=== PATIENT | female | born 1960 | race Caucasian/White ===

== ENCOUNTER 2019-03-06 17:10 | Emergency (ER) | payer OTHER ==
--- NOTE | 2019-03-06 17:52 | RAD REPORT ---
EXAM DESCRIPTION: RAD -Hand Left 3 View - 03/06/2019 5:37 pm CLINICAL HISTORY: Left hand pain status post injury FINDINGS: No fracture or dislocation is seen. Mild soft tissue amputation involves the distal second digit
[2019-03-06] MEDS ORDERED: IBUPROFEN 400 MG TAB ONE (17:55)
[2019-03-06] MEDS ORDERED: HYDROCODONE/APAP 5/325 MG TAB ONE (17:55)
--- NOTE | 2019-03-06 18:01 | ER ---
Nurse's Notes [facility] Name: Swetha Elizabeth Age: 58 yrs Sex: Female : 1960 Arrival Date: 03/06/2019 Time: 17:12 Bed 30 Private MD: Diagnosis: Laceration without foreign body of left index finger with damage to nail-Avulsion of distal fingertip Presentation: 03/06 17:12 Presenting complaint: Patient states: "I cut my left index finger with a rotary aa5 cutter". Pressure being applied to site by pt. 17:12 Transition of care: patient was not received from another setting of care. Complicating aa5 Factors: There are no complicating factors for this patient. Onset of symptoms was February 2019. Risk Assessment: Do you want to hurt yourself or someone else? Patient reports no desire to harm self or others. Care prior to arrival: None. 17:12 Method Of Arrival: Ambulatory aa5 17:12 Acuity: LEVY 3 aa5 17:20 Initial Sepsis Screen: Does the patient meet any 2 criteria? No. Patient's initial ca1 sepsis screen is negative. Does the patient have a suspected source of infection? No. Patient's initial sepsis screen is negative. 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 - Social history:: Smoking status: Patient/guardian denies using tobacco. - Ebola Screening: : No symptoms or risks identified at this time. Screenin:15 Abuse screen: Denies threats or abuse. Denies injuries from another. Nutritional ca1 screening: No deficits noted. Tuberculosis screening: No symptoms or risk factors identified. Fall Risk None identified. Assessment: 17:15 General: Appears in no apparent distress. uncomfortable, Behavior is calm, cooperative, ca1 appropriate for age. Pain: Complains of pain in dorsal aspect of distal phalanx of left index finger, palmar aspect of distal phalanx of left index finger and left index fingernail Pain currently is 10 out of 10 on a pain scale. Pain began 30 min ago. Neuro: Level of Consciousness is awake, alert, obeys commands, Oriented to person, place, time, situation. Cardiovascular: Heart tones S1 S2 present Capillary refill < 3 seconds Patient's skin is warm and dry. Respiratory: Airway is patent Respiratory effort is even, unlabored, Respiratory pattern is regular, symmetrical, Breath sounds are clear bilaterally. GI: No deficits noted. No signs and/or symptoms were reported involving the gastrointestinal system. : No deficits noted. No signs and/or symptoms were reported regarding the genitourinary system. EENT: No deficits noted. No signs and/or symptoms were reported regarding the EENT system. Derm: Skin is healthy with good turgor, Skin is pink, warm \\T\\ dry. Wound noted Left index finger Wound is avulsed wound. Musculoskeletal: Circulation, motion, and sensation intact. Capillary refill < 3 seconds, Range of motion: intact in all extremities. Injury Description: Laceration is clean, 2.6 to 7.5 cm long, bleeding moderately. 17:37 Reassessment: Cleaned wound. soaked on saline. Applied pressure dressing. Pt tolerated ca1 procedure well. 18:00 Reassessment: Assisted Aristeo Wilkins with surgiseal application on would, Kerlix and ca1 Coban. Pt tolerated well. 18:30 Reassessment: Patient appears in no apparent distress at this time. Patient is alert, ca1 oriented x 3, equal unlabored respirations, skin warm/dry/pink. Checked wound for bleeding. None noted at this time. Pt verbalized understanding of wound dressing and care for wound. Vital Signs: 17:15 BP 121 / 82; Pulse 89; Resp 17 S; Temp 98.1(O); Pulse Ox 99% on R/A; Weight 64.41 kg; ca1 Height 5 ft. 2 in. (157.48 cm); Pain 10/10; 18:35 BP 119 / 78; Pulse 86; Resp 18 S; Pulse Ox 100% on R/A; ca1 17:15 Body Mass Index 25.97 (64.41 kg, 157.48 cm) ca1 ED Course: 17:12 Patient arrived in ED. as 17:12 Arm band placed on. aa5 17:13 Aristeo Wilkins PA is PHCP. cp 17:13 Piero Bolden MD is Attending Physician. cp 17:15 Patient has correct armband on for positive identification. Bed in low position. Side ca1 rails up X 1. Pulse ox on. NIBP on. elevated left hand and applied pressure dressing on bleeding wound. 17:17 Triage completed. aa5 17:30 Ruma Padilla, RN is Primary Nurse. ca1 17:35 XRAY Hand LEFT 3 View In Process Unspecified. EDMS 17:45 No provider procedures requiring assistance completed. ca1 17:45 Patient did not have IV access during this emergency room visit. ca1 18:00 Dressings: Surgicel, Kerlix and Coban on avulsed wound at pointing finger on Left hand. ca1 Pt tolerated well. Administered Medications: 17:45 Drug: Golden 5 mg-325 mg 1 tabs Route: PO; ca1 18:45 Follow up: Response: No adverse reaction; Pain is decreased ca1 17:45 Drug: Ibuprofen 800 mg Route: PO; ca1 18:45 Follow up: Response: No adverse reaction; Pain is decreased ca1 Outcome: 18:01 Discharge ordered by MD. cp 18:30 Discharged to home ambulatory. ca1 18:30 Condition: stable 18:30 Discharge instructions given to patient, Instructed on discharge instructions, follow up and referral plans. medication usage, wound care, Demonstrated understanding of instructions, follow-up care, medications, Prescriptions given X 2. 18:56 Patient left the ED. ca1 Signatures: Dispatcher [employer] EDMS Yuridia Chua Audri, RN RN aa5 Aristeo Wilkins PA PA cp Ruma Padilla, RN RN ca1 Corrections: (The following items were deleted from the chart) 18:40 17:45 Dressings: Surgicel, Kerlix and Coban ca1 ca1 18:52 17:45 Dressings: Surgicel, Kerlix and Coban on avulsed wound at pointing finger on Left ca1 hand. Pt tolerated well. ca1 18:56 18:55 Discharged to home ambulatory, ca1 ca1 18:56 18:55 Condition: stable ca1 ca1 18:56 18:55 Discharge instructions given to patient, Instructed on discharge instructions, ca1 follow up and referral plans. medication usage, wound care, Demonstrated understanding of instructions, follow-up care, medications, Prescriptions given X 2, ca1 18:56 18:45 Reassessment: Patient appears in no apparent distress at this time. Patient is ca1 alert, oriented x 3, equal unlabored respirations, skin warm/dry/pink. Checked wound for bleeding. None noted at this time. Pt verbalized understanding of wound dressing and care for wound ca1
--- NOTE | 2019-03-06 18:01 | EDPHYS ---
Physician Documentation [facility] Name: Swetha Elizabeth Age: 58 yrs Sex: Female : 1960 Arrival Date: 03/06/2019 Time: 17:12 Bed 30 Private MD: ED Physician Piero Bolden HPI: 03/06 17:24 This 58 yrs old Female presents to ER via Ambulatory with complaints of cp Laceration To Hand. 17:24 The patient has a laceration related to: working, asparagus cutter, occurred at home, The cp injury was accidental. The laceration(s) is(are) located on the left index finger. Onset: The symptoms/episode began/occurred just prior to arrival. Associated signs and symptoms: Pertinent negatives: heavy bleeding. 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 - Social history:: Smoking status: Patient/guardian denies using tobacco. - Ebola Screening: : No symptoms or risks identified at this time. ROS: 17:25 Eyes: Negative for injury, pain, redness, and discharge. cp 17:25 Constitutional: Negative for body aches, chills, fever, poor PO intake. 17:25 Cardiovascular: Negative for chest pain. 17:25 Respiratory: Negative for cough, shortness of breath, wheezing. 17:25 Abdomen/GI: Negative for abdominal pain, vomiting, diarrhea, constipation. 17:25 MS/extremity: Positive for injury or acute deformity, laceration, of the left index finger. 17:25 Skin: Negative for rash. 17:25 All other systems are negative. Exam: 17:35 Constitutional: The patient appears in no acute distress, alert, awake, non-toxic, well cp developed, well nourished. 17:35 Head/Face: Normocephalic, atraumatic. cp 17:35 Eyes: Periorbital structures: appear normal, Conjunctiva: normal, Lids and lashes: appear normal, bilaterally. 17:35 ENT: External ear(s): are unremarkable, Nose: is normal, Mouth: is normal. 17:35 Chest/axilla: Inspection: normal. 17:35 Respiratory: the patient does not display signs of respiratory distress, Respirations: normal, no use of accessory muscles, no retractions. 17:35 Abdomen/GI: Exam negative for discomfort, distension, guarding, Inspection: abdomen appears normal. 17:35 Musculoskeletal/extremity: ROM: full active range of motion, in the left index finger, Perfusion: the extremity is normally perfused throughout, Sensation intact. Tendon exam: specific tendon testing normal through active and passive range of motion 17:35 Skin: injury, avulsion(s), a small of the distal phalanx lateral side left index finger, that can be described as through and through, with mild bleeding. Vital Signs: 17:15 BP 121 / 82; Pulse 89; Resp 17 S; Temp 98.1(O); Pulse Ox 99% on R/A; Weight 64.41 kg; ca1 Height 5 ft. 2 in. (157.48 cm); Pain 10/10; 18:35 BP 119 / 78; Pulse 86; Resp 18 S; Pulse Ox 100% on R/A; ca1 17:15 Body Mass Index 25.97 (64.41 kg, 157.48 cm) ca1 MDM: 17:13 Patient medically screened. cp 17:25 Differential diagnosis: superficial laceration, open fracture, skin avulsion. cp 18:00 Data reviewed: vital signs, nurses notes, radiologic studies, plain films. cp 18:00 Test interpretation: by ED physician or midlevel provider: xrays of left hand negative cp for fracture. Counseling: I had a detailed discussion with the patient and/or guardian regarding: the historical points, exam findings, and any diagnostic results supporting the discharge/admit diagnosis, radiology results, the need for outpatient follow up, a family practitioner, to return to the emergency department if symptoms worsen or persist or if there are any questions or concerns that arise at home. Response to treatment: the patient's symptoms have markedly improved after treatment, Wound cleaned, surgiseal and pressure dressing applied to control bleeding. Will discharge to home for continued monitoring. 03/06 17:21 Order name: XRAY Hand LEFT 3 View cp 03/06 17:21 Order name: Wound Care: soak with saline and betadine; Complete Time: 17:37 cp 03/06 17:40 Order name: Wound dressing: dress with surgiseal and tube guaze; Complete Time: 17:58 cp Administered Medications: 17:45 Drug: Kaplan 5 mg-325 mg 1 tabs Route: PO; ca1 18:45 Follow up: Response: No adverse reaction; Pain is decreased ca1 17:45 Drug: Ibuprofen 800 mg Route: PO; ca1 18:45 Follow up: Response: No adverse reaction; Pain is decreased ca1 Disposition: 03/07 07:02 Co-signature as Attending Physician, Piero Bolden MD. rn Disposition: 03/06/19 18:01 Discharged to Home. Impression: Laceration without foreign body of left index finger with damage to nail - Avulsion of distal fingertip. - Condition is Stable. - Discharge Instructions: Laceration Care, Adult, Nonsutured Laceration Care. - Prescriptions for Keflex 500 mg Oral Capsule - take 1 capsule by ORAL route every 8 hours for 7 days; 21 capsule. Tylenol- Codeine #3 300-30 mg Oral Tablet - take 2 tablets by ORAL route every 8 hours As needed; 10 tablet. - Medication Reconciliation Form, Thank You Letter, Antibiotic Education, Prescription Opioid Use form. - Follow up: Private Physician; When: 1 - 2 days; Reason: Wound Recheck. - Problem is new. - Symptoms have improved. Signatures: Dispatcher [employer] EDMS Piero Bolden MD MD rn Calderon, Audri, RN RN aa5 Aristeo Wilkins PA PA cp Acob, Cheryl, RN RN ca1 Corrections: (The following items were deleted from the chart) 03/06 18:56 18:01 03/06/2019 18:01 Discharged to Home. Impression: Laceration without foreign body ca1 of left index finger with damage to nail - Avulsion of distal fingertip. Condition is Stable. Forms are Medication Reconciliation Form, Thank You Letter, Antibiotic Education, Prescription Opioid Use. Follow up: Private Physician; When: 1 - 2 days; Reason: Wound Recheck. Problem is new. Symptoms have improved. cp
== END 2019-03-06 18:56 | disposition home or self-care (01) ==
LOC: ER 17:10
DX: S61.311A Laceration without foreign body of left index finger with damage to nail, initial encounter (principal); W29.8XXA Contact with other powered hand tools and household machinery, initial encounter; Y92.009 Unspecified place in unspecified non-institutional (private) residence as the place of occurrence of the external cause; E78.5 Hyperlipidemia, unspecified
CPT/HCPCS: 99284

== ENCOUNTER → 2022-06-23 | Day surgery (SDC) | payer OTHER ==
--- NOTE | 2022-06-24 10:33 | RAD REPORT ---
EXAM DESCRIPTION: US - Breast Core BX Addtnl - 06/23/2022 11:00 am CLINICAL HISTORY: TWO MASSES on prior screening and diagnostic mammography and sonography R92.8 COMPARISON: No comparisons TECHNIQUE: The patient presents for image guided biopsy of two areas of spiculated tissue in the 10 o'clock and 7 o'clock right breast new from 2020 imaging. The procedure, risks and alternatives were discussed with the patient in detail. After answering all questions both oral and written consent were obtained. The patient had no contraindicated allergy or medication history. Prior imaging showed hypoechoic masses and spiculated tissue in the 10 o'clock and 7 o'clock right br east. On today's preliminary sonographic imaging the spiculated tissue is identifiable. The mass comp onents were less well defined. There was an overall heterogeneous hypoechoic and spiculated abnormal tissue in the lateral right breast. Abnormal tissue was seen to span the region between the more prom inent 10 o'clock and 7 o'clock findings. The skin was prepped and draped in the usual sterile fashion. Skin and deeper tissues were anesthetiz ed with 1% lidocaine. One lateral right breast access site was used to reach both the 7 o'clock and 1 0 o'clock lesions. Under direct sonographic visualization a 12 gauge vacuum assisted biopsy needle was advanced into the abnormal tissue in the 7 o'clock region of the right breast. A total of three core biopsies were obt ained. A second 12 gauge vacuum assisted biopsy needle was then used to sample the spiculated abnorma l tissue in the 10 o'clock region of the right breast. There were three core biopsies obtained. At th e conclusion of the procedure post biopsy localization clips were placed in the 7 o'clock and 10 o'cl ock regions of the right breast under sonographic guidance. Localized bleeding occurred during the examination. This was controlled with direct pressure. No palp able hematoma seen. Hemostasis was obtained. A sterile bandage was placed over the puncture site. Ice pack was also utilized for the patient at the conclusion of the procedure. The patient tolerated procedure without immediate complication. The patient was notified about the ex pected breast soreness and bruising about are to be expected. Post-procedure care and precaution inst ructions were given to the patient. All obtained material was retained in two separate containers and given to pathology for histologic a ssessment. IMPRESSION: 1. Ultrasound-guided core biopsy was performed of the spiculated abnormal tissues in the 10 o'clock and 7 o'clock region of the right breast. 2. Abnormal tissue spanned the region between 7 o'clock and 10 o'clock abnormalities. 3. Localization clips were placed in the 10 o'clock and 7 o'clock biopsy sites.
--- NOTE | 2022-06-24 10:46 | RAD REPORT ---
EXAM DESCRIPTION: US - Breast Core BX w/US Guidance - 06/23/2022 10:23 am CLINICAL HISTORY: TWO MASSES on prior screening and diagnostic mammography and sonography R92.8 COMPARISON: 3D DIAG UNI F/U dated 06/15/2022; Follow Up Breast Axilla Comp dated 06/15/2022; 3D SCR MA M BILAT W/CAD dated 06/10/2022 TECHNIQUE: The patient presents for image guided biopsy of two areas of spiculated tissue in the 10 o'clock and 7 o'clock right breast new from 2020 imaging. The procedure, risks and alternatives were discussed with the patient in detail. After answering all questions both oral and written consent were obtained. The patient had no contraindicated allergy or medication history. Prior imaging showed hypoechoic masses and spiculated tissue in the 10 o'clock and 7 o'clock right br east. On today's preliminary sonographic imaging the spiculated tissue is identifiable. The mass comp onents were less well defined. There was an overall heterogeneous hypoechoic and spiculated abnormal tissue in the lateral right breast. Abnormal tissue was seen to span the region between the more prom inent 10 o'clock and 7 o'clock findings. The skin was prepped and draped in the usual sterile fashion. Skin and deeper tissues were anesthetiz ed with 1% lidocaine. One lateral right breast access site was used to reach both the 7 o'clock and 1 0 o'clock lesions. Under direct sonographic visualization a 12 gauge vacuum assisted biopsy needle was advanced into the abnormal tissue in the 7 o'clock region of the right breast. A total of three core biopsies were obt ained. A second 12 gauge vacuum assisted biopsy needle was then used to sample the spiculated abnorma l tissue in the 10 o'clock region of the right breast. There were three core biopsies obtained. At th e conclusion of the procedure post biopsy localization clips were placed in the 7 o'clock and 10 o'cl ock regions of the right breast under sonographic guidance. Localized bleeding occurred during the examination. This was controlled with direct pressure. No palp able hematoma seen. Hemostasis was obtained. A sterile bandage was placed over the puncture site. Ice pack was also utilized for the patient at the conclusion of the procedure. The patient tolerated procedure without immediate complication. The patient was notified about the ex pected breast soreness and bruising that are to be expected. Post-procedure care and precaution instr uctions were given to the patient. All obtained material was retained in two separate containers and given to pathology for histologic a ssessment. IMPRESSION: 1. Ultrasound-guided core biopsy was performed of the spiculated abnormal tissues in the 10 o'clock and 7 o'clock region of the right breast. 2. Abnormal tissue spanned the region between 7 o'clock and 10 o'clock abnormalities. 3. Localization clips were placed in the 10 o'clock and 7 o'clock biopsy sites.
== END ==
LOC: DS 09:13
PROVIDERS: ATTEND Obstetrics & Gynecology
DX: C50.911 Malignant neoplasm of unspecified site of right female breast (principal); Z17.0 Estrogen receptor positive status [ER+]
CPT/HCPCS: 19083; 19084; 88305